=== PATIENT | male | born 1985 | race Caucasian/White ===

== ENCOUNTER 2021-06-23 08:00 | Outpatient (CLI) | payer MEDICAID ==
[2021-06-23 18:00] LABS: BASOPHILS # (AUTO) 0.1 10^3/uL (0.0-0.1); BASOPHILS % (AUTO) 1.6 %; EOSINOPHILS # (AUTO) 0.2 10^3/uL (0.0-0.7); EOSINOPHILS % (AUTO) 4.6 %; HCT - HEMATOCRIT 45.4 % (42.0-52.0); HGB - HEMOGLOBIN 15.4 g/dL (14.0-18.0); LYMPHOCYTES # (AUTO) 1.7 10^3/uL (1.5-3.5); LYMPHOCYTES % (AUTO) 33.4 %; MEAN CORPUSCULAR HEMOGLOBIN 30.5 pg (27.0-31.0); MEAN CORPUSCULAR HGB CONC 33.9 g/dL (32.0-36.0); MEAN CORPUSCULAR VOLUME 89.9 fL (80.0-94.0); MEAN PLATELET VOLUME 9.2 fL (7.4-11.4); MONOCYTES # (AUTO) 0.3 10^3/uL (0.0-1.0); NEUTROPHILS # (AUTO) 2.7 10^3/uL (1.5-6.6); NEUTROPHILS % (AUTO) 54.2 %; PLT - PLATELET COUNT 288 10^3/uL (130-450); RED BLOOD COUNT 5.05 10^6/uL (4.70-6.10); RED CELL DISTRIBUTION WIDTH 11.6 % (12.0-15.0)
[2021-06-23 18:23] LABS: ALBUMIN 4.6 g/dL (3.2-5.5); ALBUMIN/GLOBULIN RATIO 1.4 (1.0-2.2); ALKALINE PHOSPHATASE 47 IU/L (42-121); ALT ALANINE AMINOTRANSFERASE 17 IU/L (10-60); AST ASPARTATE AMINOTRANSFERASE 22 IU/L (10-42); BILIRUBIN,TOTAL 0.7 mg/dL (0.2-1.0); BUN - BLOOD UREA NITROGEN 19 mg/dL (6-20); CALCIUM 9.7 mg/dL (8.5-10.3); CARBON DIOXIDE - CO2 29 mmol/L (21-32); CHLORIDE 99 mmol/L (101-111); CREATININE 0.9 mg/dL (0.6-1.2); GFR - MDRD 95 (>89); GLUCOSE 106 mg/dL (70-100); POTASSIUM 4.2 mmol/L (3.5-5.0); SODIUM 138 mmol/L (135-145); TOTAL PROTEIN 7.9 g/dL (6.7-8.2)
[2021-06-23 18:33] LABS: THYROID STIMULATING HORMONE 2.22 uIU/mL (0.34-5.60)
[2021-06-23 18:51] LABS: CRP - C-REACTIVE PROTEIN < 1.0 mg/dL (0-1.0)
[2021-06-23 19:00] LABS: RHEUMATOID FACTOR NEGATIVE (Negative)
[2021-06-26 14:11] LABS: ANA SCREEN NEGATIVE (NEGATIVE)
== END 2021-06-23 23:59 ==
LOC: LAB.S 08:00
PROVIDERS: ATTEND Emergency Medicine
DX: R07.89 Other chest pain (principal); M79.10 Myalgia, unspecified site
CPT/HCPCS: 36415; 80053; 84443; 85025; 85651; 86038; 86140; 86430

== ENCOUNTER 2021-09-04 15:18 | Outpatient (CLI) | payer MEDICAID ==
--- NOTE | 2021-09-04 16:34 | CT Report ---
PROCEDURE: Abdomen/Pelvis WO INDICATIONS: HYDRONEPHROSIS TECHNIQUE: Noncontrast 5 mm thick sections acquired from the diaphragms to the symphysis. 5 mm coronal and sagi ttal reformats were then performed. For radiation dose reduction, the following was used: automated exposure control, adjustment of mA and/or kV according to patient size. COMPARISON: None. FINDINGS: Inferior chest: No focal consolidation, pleural effusion, or pneumothorax. No cardiomegaly or perica rdial effusion. Gallbladder: The gallbladder is distended with a smooth wall. Biliary tree: No intra-or extrahepatic biliary ductal dilatation. Liver: The liver demonstrates normal appearance. Spleen: Normal size and morphology is seen. Pancreas: Normal morphology without masses or inflammatory changes. Adrenals: Normal size without masses. Kidneys: Bilateral nephrolithiasis without evidence of obstructive uropathy. 4.2 mm calculus in the right upper pole: 361 Hounsfield units 4.1 mm calculus in the left lower pole: 508 Hounsfield units Vasculature: No evidence of aneurysm or other significant vascular pathology. Lymphatic system: No pathologic enlargement by size criteria. Bowel: No intestinal obstruction. The appendix is not well seen. Peritoneum/Retroperitoneum: No free intraperitoneal gas or large collection. Urinary bladder: The urinary bladder is distended with a smooth thin wall. Pelvic organs: No significant abnormality. Bones/soft tissues: No significant abnormality. IMPRESSION: 1.Bilateral nephrolithiasis without evidence of obstructive uropathy. Reviewed by: Faustino Robles MD on 09/04/2021 4:32 PM PDT Approved by: Faustino Robles MD on 09/04/2021 4:32 PM PDT Station ID: [id number]
== END 2021-09-04 15:19 | disposition home or self-care (01) ==
LOC: DI 15:18
PROVIDERS: ATTEND Physician Assistant Medical
DX: N13.30 Unspecified hydronephrosis (principal); N20.0 Calculus of kidney; R31.0 Gross hematuria; R10.9 Unspecified abdominal pain